=== PATIENT | male | born 1940 | race Caucasian/White ===

== ENCOUNTER → 2019-02-25 | Outpatient (CLI) | payer MEDICARE ==
[~2019-02-25] MED LIST: ACET1TAB15 PO; ALPRPOW4 PO; ATEN25TA PO; CLON0.2T PO; CRESTOR PO; DOCU5LIQ PO; KEFL250C6 PO; LISIPOW PO; MAPA500T17 PO; SOMA350T PO; STOOL SOFTNER PO; ZETI10TA21 PO
--- NOTE | 2019-02-26 14:24 | REP ---
PET/CT: HISTORY: Right upper lobe pulmonary nodule. COMPARISONS: [facility] CT study dated February 07, 2019 was read as showing a new 1 cm pulmonary nodule in the right upper lobe. TECHNIQUE: 50 minutes following the intravenous injection of a 8.89 mCi dose of F-18 FDG, three-dimensional PET scintigraphy is acquired from the skull base to the proximal thighs. Triplanar noncontrast CT scanning is acquired through the same anatomic range for attenuation correction, and image registration with scan parameters optimized to minimize radiation exposure to the patient. PET scintigraphy and CT datasets were fused and displayed on a workstation with multiplanar and projection display capability. PET/CT FINDINGS: There is no visible FDG accumulation in the 1 cm nodular opacity in the right upper lobe seen on recent chest CT study. 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 This shows visible but not hypermetabolic uptake, maximum standard uptake value is 1.45. This is not in the nodule. There is no abnormal hypermetabolic uptake in the chest. Head and neck soft tissues are unremarkable. There is mildly increased uptake in three linearly adjacent healing rib fractures on the right lateral chest. In the abdomen and pelvis, normal distribution of FDG tracer is seen. Head and neck soft tissues are unremarkable. IMPRESSION: No abnormal hypermetabolic uptake. Suggests CT followup for the right upper lobe lung nodule. Electronically Signed by Charli Marquez MD 02/26/2019 03:43 P
== END ==
LOC: M PLARAD 07:22
PROVIDERS: ATTEND Family Medicine
DX: R91.1 Solitary pulmonary nodule (principal)
CPT/HCPCS: 78815; A9552